=== PATIENT | male | born 1980 | race Hispanic/Latino ===

== ENCOUNTER → 2023-04-21 | Outpatient (CLI) | payer MEDICAID | END | disposition home or self-care (01) | LOC: RAH 11:39 | PROVIDERS: ATTEND Internal Medicine | DX: S89.91XD Unspecified injury of right lower leg, subsequent encounter (principal); X58.XXXD Exposure to other specified factors, subsequent encounter | CPT/HCPCS: 73590; 73610 ==

== ENCOUNTER → 2025-09-02 | Outpatient (CLI) | payer OTHER ==
--- NOTE | 2025-09-03 06:31 | HMCIMG ---
EXAM: CT Cardiac calcium scoring. CLINICAL HISTORY: CAD screening. TECHNIQUE: Thin collimated axial CT cardiac images were obtained. A CT scan is done according to ALARA (As Low As Reasonably Achievable). CONTRAST: None. COMPARISON: None provided. FINDINGS: Calcium Score: VESSEL Number of lesions Volume mm3 Equi. Mass/mg Calcium score LM 0 00.00 00.00 00.00 LAD 0 00.00 00.00 00.00 LCX 0 00.00 00.00 00.00 RCA 0 00.00 00.00 00.00 Total 0 00.00 00.00 00.00 IMPRESSION: The calcium score is 0. This places the patient into 0th percentile in comparison to a group of patients asymptomatic for coronary artery disease with the same age and gender. This means that 0% of males aged 45-49 have a calcium score that is lower than the patient's. /Roni
== END | disposition home or self-care (01) ==
LOC: RAH 14:36
PROVIDERS: ATTEND Internal Medicine Cardiovascular Disease
DX: Z13.6 Encounter for screening for cardiovascular disorders (principal)
CPT/HCPCS: 75571

== ENCOUNTER → 2025-10-14 | Outpatient (CLI) | payer MEDICAID ==
--- NOTE | 2025-10-15 00:11 | HMCIMG ---
EXAM Renal ultrasound CLINICAL INDICATION Unspecified HEMATURIA (Hx). COMPARISON None. TECHNIQUE Grayscale ultrasound images of the kidneys and urinary bladder were obtained. Pre-void and post-void bladder volumes were measured. RIGHT KIDNEY The right kidney measures approximately 13.2 x 5.2 x 6.1 cm. Renal cortical thickness and echogenicity are preserved. No hydronephrosis is identified. No focal renal mass or renal calculus is identified. LEFT KIDNEY The left kidney measures approximately 14.8 x 6.8 x 6.4 cm. Renal cortical thickness and echogenicity are preserved. Multiple simple appearing renal cysts are present, the largest measuring approximately 3.8 x 3.2 x 4.3 cm. No hydronephrosis or solid renal mass is identified. URINARY BLADDER The urinary bladder is adequately distended on pre-void imaging with a calculated volume of approximately 295 mL. Post-void bladder volume measures approximately 57 mL. The bladder wall measures approximately 0.6 cm and is within normal limits for the degree of distention. Bilateral ureteral jets are visualized. No intraluminal mass or calculus is identified. IMPRESSION * Multiple simple cysts within the left kidney, the largest measuring up to 4.3 cm, without sonographic features of complexity. * Bilateral kidneys are enlarged without hydronephrosis. * Mild post-void residual urinary bladder volume with mildly thickened bladder wall. * No sonographic evidence of obstructive uropathy. RECOMMENDATIONS * No further imaging is required for simple renal cysts per ACR Appropriateness Criteria in the absence of suspicious features. * Clinical correlation is recommended for bilateral renal enlargement and bladder wall thickening. Further urologic or nephrologic evaluation may be considered if urinary symptoms persist or renal function is abnormal. /Roni
== END | disposition home or self-care (01) ==
LOC: RAH 14:01
PROVIDERS: ATTEND Internal Medicine
DX: N28.1 Cyst of kidney, acquired (principal); R31.9 Hematuria, unspecified; N28.81 Hypertrophy of kidney
CPT/HCPCS: 76770